=== PATIENT | female | born 2000 | race Caucasian/White ===

== ENCOUNTER 2018-08-24 09:33 | Observation (INO) ==
[2018-08-24] MEDS ORDERED: Acetaminophen 325 MG TABLET PO ONE (10:17)
--- NOTE | 2018-08-24 11:30 | OB/GYN Progress Note ---
Date of Encounter: 08/24/18 Time of Encounter: 11:24 - Assessment and Plan (1) 29 weeks gestation of Current Visit: Yes Status: Acute extended monitoring CBC pending Blood type O+ Discharge home with labor and bleeding/trauma precautions FOllow up in office and scheduled and PRN (2) Fall Current Visit: Yes Status: Acute Qualifiers: Encounter type: initial encounter Qualified Code(s): W19.XXXA - Unspecified fall, initial encounter Subjective - Subjective Principal diagnosis: Fall x 2 in 24 hour Interval history: Ms Steve is a at 29 weeks 4 days gestation that presents to triage with c/o a fall due to new shoes x 2 in the past 24 hours. She states she has hit her left knee and left pelvis. She denies striking her abdomen. She states her last fall was this morning at 0800. She states positive movement. She denies headache, vision changes, epigastric pain, leaking of fluid, vaginal bleeding, and contractions/cramping. She states she feels safe at home and denies any physical violence. She has been seen by the midwives for her . Antepartum ROS: movement normal, no new complaints, no contractions Objective - Exam FHR: auscultation normal, category 1 FHR comments: FHTs 145 Auscultation: bilateral: normal Abdomen: Present: normal appearance, soft, gravid Uterus: Present: normal. Absent: firm, tenderness
[2018-08-24 11:48] LABS: Basophils % 0.4 %; Eosinophils # 0.1 K/mcL (0.0-0.6); Eosinophils % 0.6 %; Hematocrit 34.2 % (35.3-44.9); Immature Granulocytes % 1.4 % (0-4); Lymphocytes # 1.8 K/mcL (0.6-4.6); Lymphocytes % 18.1 %; Mean Corpuscular HGB Conc 32.2 g/dL (31.6-35.5); Mean Platelet Volume 11.6 fL (9.4-12.4); Monocytes # 0.8 K/mcL (0.0-1.3); Monocytes % 7.7 %; Neutrophils # 7.3 K/mcL (1.6-8.9); Platelet Count 237 K/mcL (140-400); Red Blood Count 3.93 M/mcL (3.82-4.97); Red Cell Distribution Width 12.4 % (11.5-14.5); Segmented Neutrophils % 71.8 %
[2018-08-24 12:12] LABS: Amphetamine Screen,Urine Negative ng/mL (Cutoff=1000); Barbiturate Screen,Urine Negative ng/mL (Cutoff=200); Benzodiazepines Screen,Urine Negative ng/mL (Cutoff=200); Cannabinoid Screen,Urine Negative ng/mL (Cutoff = 50); Cocaine Screen,Urine Negative ng/mL (Cutoff= 300); Opiate Screen,Urine Negative ng/mL (Cutoff=300); Phencyclidine Screen,Urine Negative ng/mL (Cutoff=25)
== END 2018-08-24 12:20 | disposition home or self-care (01) ==
LOC: 1NENULAB
PROVIDERS: ADMIT Advanced Practice Midwife; ATTEND Advanced Practice Midwife

== ENCOUNTER → 2018-09-05 11:53 | Observation (INO) ==
--- NOTE | 2018-09-05 11:42 | OB/GYN Progress Note ---
Date of Encounter: 09/05/18 Time of Encounter: 11:40 - Assessment and Plan (1) 31 weeks gestation of Current Visit: Yes Status: Acute 2 variables notes on NST. Patient being discharged to the office for BPP. Plan discussed with Dr. Hall. (2) Vaginal discharge during Current Visit: Yes Status: Acute Patient with an increase in discharge and itching x1 week. SVE with white discharge. Vaginosis panel pending. Will follow-up with cultures. Qualifiers: Qualified Code(s): O26.899 - Other specified related conditions, unspecified trimester; N89.8 - Other specified noninflammatory disorders of vagina (3) Abdominal pain Current Visit: Yes Status: Acute Pt reports bilateral upper quadrant abdominal pain that was 7/10 at home and now reports 1/10. Patient reports pain occurred while she was trying to have a bowel movement. Pt denies diarrhea or constipation. Pain improved now. Qualifiers: Qualified Code(s): R10.10 - Upper abdominal pain, unspecified (4) Dizziness Current Visit: Yes Status: Acute Pt reports dizziness earlier, has been PO hydrating. Reports improvement at this time. Subjective - Subjective Principal diagnosis: abdominal pain, vaginal discharge and itching, dizziness Interval history: 18 y/o at 31w2d that presents with abdominal pain that was rate 7/10 at home and now 1/10 and an increase in vaginal discharge and itching. Denies VB, LOF or Ctx. Reports good FM. Antepartum ROS: new complaints, movement normal, no loss of fluid, no vaginal bleeding, no contractions Objective - Exam FHR: auscultation normal FHR comments: FHR baseline 145bpm. 2 variables noted on strip. Will send to office for BPP. Auscultation: bilateral: normal Abdomen: Present: normal appearance, soft, gravid
[2018-09-05 11:56] LABS: Bilirubin,Urine Negative (Negative); Blood,Urine Negative (Negative); Color,Urine Yellow (Yellow); Glucose,Urine (UA) Normal (Normal); Ketones,Urine Negative (Negative); Leukocyte Esterase,Urine Moderate (Negative); Nitrite,Urine Negative (Negative); Protein,Urine 30 mg/dL (Neg-Trace); Urobilinogen,Urine Normal (Normal)
[2018-09-05 11:58] LABS: Bacteria,Urine Many per hpf (None-Few); Hyaline Casts,Urine Moderate per lpf (None-Few); Squamous Epithelial Cell,Urine Many per lpf (None-Few); WBC,Urine 50-100 per hpf (0-3)
[2018-09-05 12:00] LABS: Clarity,Urine Hazy (Clear)
[2018-09-05 12:05] LABS: Amphetamine Screen,Urine Negative ng/mL (Cutoff=1000); Barbiturate Screen,Urine Negative ng/mL (Cutoff=200); Benzodiazepines Screen,Urine Negative ng/mL (Cutoff=200); Cannabinoid Screen,Urine Negative ng/mL (Cutoff = 50); Cocaine Screen,Urine Negative ng/mL (Cutoff= 300); Opiate Screen,Urine Negative ng/mL (Cutoff=300); Phencyclidine Screen,Urine Negative ng/mL (Cutoff=25)
[2018-09-05 12:12] LABS: Mucus,Urine Moderate (Few)
[2018-09-05 12:44] LABS: Candida DNA DETECTED (Not Detect); Gardnerella DNA Not Detected (Not Detect); Trichomonas DNA Not Detected (Not Detect)
== END | disposition home or self-care (01) ==
LOC: 1NENULAB
PROVIDERS: ADMIT Registered Nurse; ATTEND Registered Nurse

== ENCOUNTER → 2019-12-28 17:00 | Observation (INO) ==
[2019-12-28 14:42] LABS: Bilirubin,Urine Negative (Negative); Blood,Urine Large (Negative); Clarity,Urine Cloudy (Clear); Color,Urine Yellow (Yellow); Glucose,Urine (UA) Normal (Normal); Ketones,Urine Negative (Negative); Leukocyte Esterase,Urine Negative (Negative); Nitrite,Urine Negative (Negative); Protein,Urine Trace mg/dL (Neg-Trace); Specific Gravity,Urine 1.026 (1.010-1.025); Urobilinogen,Urine Normal (Normal)
[2019-12-28 14:45] LABS: Bacteria,Urine None Seen per hpf (None-Few); Hyaline Casts,Urine None Seen per lpf (None-Few); Squamous Epithelial Cell,Urine Many per lpf (None-Few)
[2019-12-28 16:26] LABS: Candida DNA Not Detected (Not Detect); Gardnerella DNA Not Detected (Not Detect); Trichomonas DNA Not Detected (Not Detect)
[~2019-12-28 17:00] MED LIST: Acetaminophen 325 MG TABLET PO ONE; Ringers Solution, Lactated 1,000 ML IVC ONE; Ringers Solution, Lactated 1,000 ML ONE
== END | disposition home or self-care (01) ==
LOC: 1NENULAB
PROVIDERS: ADMIT Advanced Practice Midwife; ATTEND Advanced Practice Midwife

== ENCOUNTER 2020-01-02 13:36 | Inpatient (IN) ==
[2020-01-02 11:38] LABS: Basophils % 0.2 %; Eosinophils # 0.1 K/mcL (0.0-0.6); Eosinophils % 0.7 %; Hematocrit 33.2 % (35.3-44.9); Lymphocytes # 1.8 K/mcL (0.6-4.6); Lymphocytes % 20.4 %; Mean Corpuscular HGB Conc 30.1 g/dL (31.6-35.5); Mean Corpuscular Hemoglobin 23.8 pg (28.0-33.3); Mean Platelet Volume 12.1 fL (9.4-12.4); Monocytes # 0.6 K/mcL (0.0-1.3); Monocytes % 6.4 %; Neutrophils # 6.4 K/mcL (1.6-8.9); Platelet Count 228 K/mcL (140-400); Red Cell Distribution Width 14.5 % (11.5-14.5); Segmented Neutrophils % 71.3 %
[2020-01-02] MEDS: Ringers Solution, Lactated 1,000 ML IVC SCH ×3 (12:49→20:01)
[~2020-01-02 13:36] MED LIST changes: +*HR* FentaNYL (PF) 100 MCG/2 ML VIAL IVP PRN; -Acetaminophen 325 MG TABLET PO ONE; +Famotidine 20 MG/2 ML VIAL IVP PRN; +Lidocaine 1% 20 ML MDV INFILT PRN; +Metoclopramide 10 MG/2 ML VIAL IVP PRN; +Naloxone 0.4 MG/ML INJ IVP PRN; +Ondansetron 4 MG/2 ML VIAL IVP PRN
[2020-01-02] MEDS ORDERED: Oxytocin 20 units/ LR 1000 mL 20 UNIT/1,000 ML BAG IVC SCH (13:45)
[2020-01-02] MEDS ORDERED: Ringers Solution, Lactated 1,000 ML IVC SCH (13:45)
[2020-01-02] MEDS ORDERED: miSOPROStoL 25 MCG TABLET PO SCH (14:58)
[2020-01-02] MEDS ORDERED: Epidural Premix (fent/bupiv) 110 ML EP SCH (18:45)
[2020-01-02] MEDS ORDERED: EPHEDrine 50 MG/ML VIAL IVP PRN (18:45)
[2020-01-02] MEDS ORDERED: Epidural Premix (fent/bupiv) 110 ML EP ONE (18:48)
[2020-01-03] MEDS ORDERED: Measles/Mumps/Rubella Vacc 0.5 ML VIAL SQ PRN (01:09)
[2020-01-03] MEDS ORDERED: Oxytocin 20 units/ LR 1000 mL 20 UNIT/1,000 ML BAG IVC ONE (01:09)
[2020-01-03] MEDS ORDERED: Rho Immune Globulin 1,500 UNIT SYRINGE IM PRN (01:09)
[2020-01-03] MEDS ORDERED: Sennosides 8.6 MG TABLET PO PRN (01:09)
[2020-01-03] MEDS: Ibuprofen 600 MG TABLET PO PRN ×3 (01:18→16:38)
[2020-01-03] MEDS: Oxytocin 20 units/ LR 1000 mL 20 UNIT/1,000 ML BAG IVC SCH ×2 (02:00→10:28)
[2020-01-03 06:25] LABS: Basophils % 0.4 %; Eosinophils # 0.1 K/mcL (0.0-0.6); Eosinophils % 0.8 %; Hematocrit 28.6 % (35.3-44.9); Hemoglobin 8.7 g/dL (11.5-15.4); Immature Granulocytes % 0.6 % (0-4); Lymphocytes # 1.9 K/mcL (0.6-4.6); Lymphocytes % 20.6 %; Mean Corpuscular HGB Conc 30.4 g/dL (31.6-35.5); Mean Corpuscular Hemoglobin 24.2 pg (28.0-33.3); Mean Corpuscular Volume 79.7 fL (83.0-100.0); Mean Platelet Volume 12.1 fL (9.4-12.4); Monocytes # 0.8 K/mcL (0.0-1.3); Monocytes % 8.7 %; Neutrophils # 6.2 K/mcL (1.6-8.9); Platelet Count 174 K/mcL (140-400); Red Blood Count 3.59 M/mcL (3.82-4.97); Red Cell Distribution Width 14.3 % (11.5-14.5); Segmented Neutrophils % 68.9 %; White Blood Count 9.1 K/mcL (4.3-11.1)
[2020-01-03] MEDS: Prenatal Vit/FA 1 EACH TABLET PO SCH (07:59)
[2020-01-03] MEDS: Acetaminophen 325 MG TABLET PO PRN (12:40)
[2020-01-04] MEDS: Acetaminophen 325 MG TABLET PO PRN (03:16)
[2020-01-04 08:11] VITALS: BP 134/81
[2020-01-04] MEDS: Ibuprofen 600 MG TABLET PO PRN (08:38)
[2020-01-04] MEDS: Prenatal Vit/FA 1 EACH TABLET PO SCH (08:38)
== END 2020-01-04 11:20 | disposition home or self-care (01) ==
LOC: 1NENULAB → 1NENUOBS 01-03 01:54
PROVIDERS: ADMIT Advanced Practice Midwife; ATTEND Advanced Practice Midwife